=== PATIENT | female | born 1965 | race Caucasian/White ===

== ENCOUNTER → 2025-09-03 14:49 | Outpatient (CLI) | payer OTHER, SELFPAY ==
--- NOTE | 2025-09-03 14:51 | DI.RAD.S_ITS ---
PROCEDURE: XR LUMBAR SPINE MIN 4V INDICATIONS: BACK PAIN TECHNIQUE: Five views lumbar spine COMPARISON: None. FINDINGS: Bones: Mild multilevel degenerative disc disease. No acute fracture. Osseous demineralization. Normal vertebral body alignment. Abnormal contour of the L3 superior endplate with preserved vertebral body height. Soft tissues: Overlying bowel gas pattern is normal. No suspicious soft tissue calcifications. Flexion/extension: There is normal range of motion, with preserved normal alignment. IMPRESSION: Degenerative disc disease. Possible L3 superior endplate compression fracture. Dictated by: Colin Hankins M.D. on 09/03/2025 at 15:37 Approved by: Colin Hankins M.D. on 09/03/2025 at 15:39
--- NOTE | 2025-09-03 14:51 | DI.RAD.S_ITS ---
PROCEDURE: XR SHOULDER LT MIN 2V INDICATIONS: LEFT SHOULDER PAIN TECHNIQUE: 3 views of the shoulder were acquired. COMPARISON: None. FINDINGS: Bones: No fractures or dislocations. No suspicious bony lesions. Visualized ribs appear intact. Soft tissues: No suspicious soft tissue calcifications. IMPRESSION: No acute bony abnormality. Dictated by: Colin Hankins M.D. on 09/03/2025 at 15:36 Approved by: Colin Hankins M.D. on 09/03/2025 at 15:37
== END ==
PROVIDERS: PCP Physician Assistant; Referring Provider Physical Medicine & Rehabilitation; Visit Provider Physical Medicine & Rehabilitation
DX: M25.512 Pain in left shoulder (principal); M51.369 Other intervertebral disc degeneration, lumbar region without mention of lumbar back pain or lower extremity pain; M54.9 Dorsalgia, unspecified
CPT/HCPCS: 72110; 73030